=== PATIENT | female | born 1995 | race Caucasian/White ===

== ENCOUNTER 2018-01-27 21:54 | Emergency (ER) | payer SELFPAY ==
[~2018-01-27] VITALS: Ht 165.1 cm; Wt 86.1 kg
[2018-01-27 21:56] VITALS: BP 125/91
== END 2018-01-27 23:07 ==
LOC: ED 22:50
DX: O9A.211 Injury, poisoning and certain other consequences of external causes complicating pregnancy, first trimester (principal); S63.501A Unspecified sprain of right wrist, initial encounter; Z3A.01 Less than 8 weeks gestation of pregnancy; W18.39XA Other fall on same level, initial encounter; Y93.89 Activity, other specified; Y92.488 Other paved roadways as the place of occurrence of the external cause; Y99.8 Other external cause status; F19.10 Other psychoactive substance abuse, uncomplicated
CPT/HCPCS: 99284

== ENCOUNTER 2021-04-01 06:43 | Emergency (ER) | payer SELFPAY ==
[~2021-04-01] VITALS: Ht 162.6 cm; Wt 66.4 kg
[2021-04-01 07:55] LABS: BASOPHILS % (AUTO) 1 % (0-1); EOSINOPHILS % (AUTO) 7 % (1-7); LYMPHOCYTES % (AUTO) 35 % (22-44); MEAN CORPUSCULAR HEMOGLOBIN 26.1 pg (27.0-34.8); MEAN CORPUSCULAR HGB CONC 32.6 g/dL (32.4-35.8); MONOCYTES % (AUTO) 8 % (2-9); NEUTROPHILS % (AUTO) 50 % (42-75); PLATELET COUNT 195 x10^3/uL (130-400); RED BLOOD COUNT 4.56 x10^6/uL (3.82-5.3); RED CELL DISTRIBUTION WIDTH 15.5 % (9.6-15.2)
[2021-04-01 08:04] LABS: ALBUMIN 3.6 g/dL (3.4-5.0); ANION GAP 7 mmol/L (5-15); CHLORIDE 113 mmol/L (98-107); CREATININE 0.64 mg/dL (0.55-1.02)
[2021-04-01] MEDS ORDERED: SODIUM CHLORIDE FLUSH 10ML SYR IVF ONE (08:30)
[2021-04-01] MEDS ORDERED: SODIUM CHLORIDE 0.9% 1,000ML IVBOLUS ONE (08:30)
[2021-04-01 09:42] VITALS: BP 124/74
== END 2021-04-01 09:44 | disposition home or self-care (01) ==
LOC: ED 07:24
DX: R55 Syncope and collapse (principal)
CPT/HCPCS: 36415; 80048; 82040; 84703; 85025; 93005; 96360; 99284; J7030

== ENCOUNTER 2021-05-15 22:08 | Emergency (ER) | payer OTHER ==
[~2021-05-15] VITALS: Ht 165.1 cm; Wt 66.2 kg
[2021-05-15 22:11] VITALS: BP 113/72
--- NOTE | 2021-05-15 22:20 | NUR ---
URINE BEING SENT TO LAB AT THIS TIME.
[2021-05-15 22:34] LABS: MICROSCOPIC INDICATED
[2021-05-15 23:01] LABS: BASOPHILS % (AUTO) 1 % (0-1); EOSINOPHILS % (AUTO) 2 % (1-7); LYMPHOCYTES % (AUTO) 30 % (22-44); MEAN CORPUSCULAR HEMOGLOBIN 26.7 pg (27.0-34.8); MEAN CORPUSCULAR HGB CONC 33.5 g/dL (32.4-35.8); MEAN PLATELET VOLUME 8.3 fL (7.4-10.4); MONOCYTES % (AUTO) 9 % (2-9); NEUTROPHILS % (AUTO) 58 % (42-75); PLATELET COUNT 258 x10^3/uL (130-400); RED BLOOD COUNT 4.69 x10^6/uL (3.82-5.3); RED CELL DISTRIBUTION WIDTH 18.3 % (9.6-15.2)
--- NOTE | 2021-05-15 23:05 | NUR ---
pt not in lobby
[2021-05-15 23:10] LABS: ALANINE AMINOTRANSFERASE 17 U/L (12-78); ALBUMIN 3.6 g/dL (3.4-5.0); ANION GAP 6 mmol/L (5-15); CHLORIDE 108 mmol/L (98-107); CREATININE 0.64 mg/dL (0.55-1.02)
--- NOTE | 2021-05-15 23:20 | NUR ---
pt not in lobby
--- NOTE | 2021-05-15 23:24 | NUR ---
PT WAS SEEN BY STAFF ARGUING WITH FATHER ABOUT VISITATION. PT THEN WAS SEEN LEAVING ED LOBBY. HAS NOT REUTRNED. PRESUMPTIVE THAT PT LEFT AMA. BELT MAKER MADE AWARE.
[2021-05-15 23:25] LABS: ALKALINE PHOSPHATASE 70 U/L (45-117); BILIRUBIN,TOTAL 0.3 mg/dL (0.2-1.0); TOTAL PROTEIN 7.5 g/dL (6.4-8.2)
== END 2021-05-15 23:34 | disposition left against medical advice (07) ==
LOC: ED 22:30
DX: N76.0 Acute vaginitis (principal); R30.0 Dysuria
CPT/HCPCS: 36415; 80053; 81001; 84703; 85025; 87086; 87491; 87591; 99283